=== PATIENT | female | born 1975 | race Hispanic/Latino ===

== ENCOUNTER 2024-05-02 17:43 | Emergency (ER) | payer OTHER ==
[~2024-05-02] VITALS: Ht 160 cm; Wt 70.3 kg
[2024-05-02] MEDS: FLUORESCEIN SODIUM 1 STRIP STRIP OP SCH (18:30)
[2024-05-02] MEDS: TETRACAINE HCL 0.5% 4 ML OPHTH SOLN OP SCH (20:32)
--- NOTE | 2024-05-02 20:32 | NUR ---
PT REPORTS TRAUMA WITH PATIENT CARE 05/01 RESULTING IN BLURRED VISION TO LEFT EYE HOWEVER AFTER VISUAL ACUITY TEST BILATERAL VISION RESULT IN 20/70
[2024-05-02] MEDS ORDERED: ERYT1OIN7 OP (22:05)
--- NOTE | 2024-05-02 22:05 | ERN ---
ED Note History of Present Illness Stated Complaint: FOREIGN OBJECT EYE Chief Complaint: Foreign Body Time Seen by MD: 18:03 Time Seen by Midlevel: 18:03 Dictation: Patient is a 49-year-old female with no past medical history who presents to the emergency department with complaints of sensation of foreign body on left eye onset last night. Patient reports that while at her job somebody broke glass and thinks she might have been exposed to it. Patient reports that sensation and pain has improved since yesterday. Police still concern for foreign body. Reports occasional blurry vision. Allergies: Coded Allergies: No Known Drug Allergies (Unverified Allergy, Unknown, 05/02/24) Past Medical History Past Medical History: No Pertinent History Surgical History: RN Note Reviewed/Agreed w/PFSH: Yes Review of System Dictation Constitutional: Negative for fever,chills, and weight loss Eyes: Negative for pain,redness, and discharge positive for left eye injury ENT: Negative for injury,pain or swelling Cardiovascular: Negative for chest pain, palpitations, and edema Respiratory: Negative for shortness of breath, cough, and wheezing, Abdomen/GI: Negative for abdominal pain, nausea, vomiting, diarrhea, and constipation Back: Negative for injury and pain : Negative for injury, bleeding and discharge MS/Extremity: Negative for injury and deformity Skin: Negative for rash, and discoloration Neuro: Negative for headache, weakness, numbness, tingling, and seizure Psych: Negative for suicide ideation, homicidal ideation, and hallucinations Initial Vital Sign VS Vital Signs Date Time Temp Pulse Resp B/P (MAP) Pulse Ox O2 Delivery O2 Flow Rate FiO2 05/02/24 17:48 98.2 79 16 116/67 95 Room Air 0 05/02/24 17:54 21 Physical Exam Dictation Vital Signs reviewed General Appearance: Alert, oriented x 3, no acute distress, well developed, nourished. Head and Face: non-traumatic. Eyes: PERRL, pink conjunctivas, eyelid no trauma, anterior chamber with arcus senilis. , small corneal abrasion to 3:00 a, ocular motor intact, no hemorrhage seen. No foreign object identified Ears: Pinnas intact and no signs of trauma or erythema ear canals clear and no discharge TM no erythema Nose: No discharge, no bleeding. Oropharynx: Mouth normal, tongue pink. pharynx clear,no erythema, tonsils no exudates, no abscesses noted, mucous membrane moist Neck: Supple, non-tender, no thyromegaly, no masses, no JVD, no bruits Breast:Deferred Chest:No tenderness, no crepitus, no paradoxical movement, no retractions Lungs:Clear, well-ventilated, symmetric, no rales, no wheezing, no rhonchi, no stridor, good breath sounds bilaterally Heart: Regular rate, regular rhythm, no murmur, no gallops Vascular: no peripheral edema, Abdomen: Soft, positive bowel sounds, nondistended, no guarding, nontender, no rebound, no masses no hepatomegaly, no splenomegaly, no Mccarty's sign, no hernias. Rectal: Deferred Genital: Deferred Neurological: Normal speech, motor function intact, sensory function intact Musculoskeletal: Neck nontender, full range of motion, back nontender, full range of motion, Extremities: nontender, full range of motion Skin: Color pink, dry, no turgor, no rash, no lacerations, no abrasions, no contusions. Lymphatic: Deferred Results (Laboratory/Radiology) Labs Reviewed?: Yes ED Course ED Course Orders Procedure Category Date Status Time Visual Acuity Test CPOE 05/02/24 Transmitted (Er) 18:21 Tetracaine Hcl PHA 05/02/24 In Process (Pontocaine 0.5% 18:30 Fluorescein Sodium PHA 05/02/24 In Process ([id number]-S-Vqpfv At) 18:30 Current Medications Medications (Trade) Dose Ordered Sig/Rebekah Route PRN Reason Start Time Stop Time Status Last Admin Dose Admin Fluorescein Sodium (Uvmln-N-Aymvj At) 1 strip ONCE OP 05/02/24 18:30 06/01/24 18:29 05/02/24 18:30 Tetracaine HCl (Pontocaine 0.5% Ophth Soln) 2 drop ONCE OP 05/02/24 18:30 06/01/24 18:29 05/02/24 20:32 Vital Signs Date Time Temp Pulse Resp B/P (MAP) Pulse Ox O2 Delivery O2 Flow Rate FiO2 05/02/24 20:38 98.2 79 16 116/67 98 Room Air* 0 05/02/24 17:54 98.2 79 16 116/67 95 Room Air* 0 21 12/28/24 17:48 98.2 79 16 116/67 95 Room Air 0 Medical Decision Making MDM Patient is a 49-year-old female with no past medical history who presents to the emergency department with complaints of sensation of foreign body on left eye onset last night. Patient reports that while at her job somebody broke glass and thinks she might have been exposed to it. Patient reports that sensation and pain has improved since yesterday. Police still concern for foreign body. Reports occasional blurry vision. Patient was small corneal abrasion on eye exam at 3 o'clock, pupil regular, PERRLA. No foreign body identified. I irrigated. Patient's visual acuity same on both eyes. Patient no acute distress will be discharged to follow up with Ophthalmology. Differential diagnosis: Foreign body, corneal abrasion, conjunctiva abrasion, Need for hospitalization: Patient does not meet criteria for hospitalization. There are no social concerns with this patient. DX & DISP Disposition: Discharge Departure Impression: Primary Impression: Left corneal abrasion Additional Impression: Eye injury Condition: Stable Scripts Erythromycin Base (Erythromycin) 5 Mg/Gram (0.5 %) Oint...g. 1 CM OP QID for 5 Days, #1 UNIT Prov: PITER VALLEJO 05/02/24 Additional Instructions: Please follow up with Ophthalmology as soon as possible. Please take medications as prescribed. [facility] [address] [place] [id number] FOLLOW-UP WITH PRIMARY CARE PROVIDER IN 1 TO 2 DAYS. TAKE MEDICATIONS DIRECTED HERE IN THE EMERGENCY ROOM. OKAY TO CONTINUE HOME MEDICATIONS UNLESS OTHERWISE DISCUSSED DURING YOUR VISIT IN THE EMERGENCY ROOM TODAY. RETURN TO YOUR NEAREST EMERGENCY ROOM IF SYMPTOMS WORSEN OR IF THERE IS NO IMPROVEMENT. CALL 911 IF YOU NEED IMMEDIATE ASSISTANCE. TAKE TYLENOL OR MOTRIN [id number] NEEDED AND IF NO CONTRAINDICATIONS ARE PRESENT. INCREASE ORAL HYDRATION. A WOUND CULTURE OR URINE CULTURE WAS ORDERED HERE IN THE EMERGENCY ROOM DEPARTMENT PLEASE FOLLOW-UP WITH PRIMARY CARE PROVIDER AND ADVISE THEM TO GET REPEAT PORTS FROM OUR FACILITY. IF YOU HAD ANY SHABNAM WRAP/SPLINTS THAT WERE APPLIED HERE, PLEASE DO NOT REMOVE THEM UNTIL YOU SEE YOUR PRIMARY CARE OR SPECIALTY. Referrals: SELF,REFERRAL (PCP) Time of Disposition: 22:03 I have reviewed the case, and I agree with, Diagnosis and Plan PITER VALLEJO May 02, 2024 22:05
[2024-05-02 22:19] VITALS: BP 115/65; PULSE 75; RESP 16; TEMP 98.3; O2SAT 98
== END 2024-05-02 22:26 | disposition home or self-care (01) ==
LOC: EDH 17:43
DX: S05.02XA Injury of conjunctiva and corneal abrasion without foreign body, left eye, initial encounter (principal); X58.XXXA Exposure to other specified factors, initial encounter; Y93.89 Activity, other specified; Y92.89 Other specified places as the place of occurrence of the external cause; Y99.8 Other external cause status
CPT/HCPCS: 99283